=== PATIENT | female | born 1990 | race Hispanic/Latino ===

== ENCOUNTER 2020-12-13 12:18 | Day surgery (SDC) | payer OTHER ==
[2020-12-13] MEDS ORDERED: CELECOXIB 100 MG CAPSULE ONE (13:10)
[2020-12-13] MEDS ORDERED: Ringers Lactate 1,000 ML IV ONE ×2 (13:10→15:47)
[2020-12-13] MEDS ORDERED: ACETAMINOPHEN 500 MG TAB ONE (13:11)
[2020-12-13] MEDS ORDERED: FENTANYL CITR 100 MCG/2 ML ONE (14:19)
[2020-12-13] MEDS ORDERED: MIDAZOLAM HCL 2 MG/2 ML INJ ONE (14:19)
[2020-12-13] MEDS ORDERED: propofoL 200 MG/20 ML VIAL IV ONE (14:19)
[2020-12-13] MEDS ORDERED: dexAMETHasone 10 MG/ML VIAL ONE (14:19)
[2020-12-13] MEDS ORDERED: LIDOCAINE 2% MPF 5 ML VIAL ONE (14:20)
[2020-12-13] MEDS ORDERED: ONDANSETRON 4 MG/2 ML VIAL ONE ×2 (14:20→17:06)
[2020-12-13] MEDS ORDERED: KETOROLAC 30 MG/ML INJ ONE (14:20)
[2020-12-13] MEDS ORDERED: CLINDAMYCIN INJ 300 MG in NA CHLORIDE 0.9% 50 ML IV ONE (14:30)
[2020-12-13] MEDS ORDERED: EPHEDRINE SULF 50 MG/ML VIAL ONE (15:22)
[2020-12-13] MEDS ORDERED: KETAMINE HCL 500 MG/5 ML VIAL ONE (16:07)
[2020-12-13] MEDS ORDERED: Mastisol Adhesive Liq ONE (16:33)
[2020-12-13] MEDS: FENTANYL CITR 100 MCG/2 ML ONE ×2 (16:55→17:00)
[2020-12-13] MEDS ORDERED: MEPERIDINE HCL 25 MG/ML SYR ONE (17:01)
[2020-12-13 17:10] VITALS: TEMP 97
[2020-12-13 17:27] VITALS: O2SAT 100
[2020-12-13] MEDS ORDERED: CODEINE 30MG/APAP 300MG TAB PO ONE (17:45)
[2020-12-13 18:41] VITALS: BP 117/73
--- NOTE | 2020-12-13 23:17 | OP ---
Surgeon: José Reddy MD Preoperative Diagnosis: Implants. Postoperative Diagnosis: Implants. Procedure Performed: Explantation and partial capsulectomy. Anesthesia: General. Procedure In Detail: After satisfactory induction of general anesthesia, the chest was prepped with DuraPrep. Dry sterile drapes were applied in the usual manner. A scalpel was used to make an incision over the previous inframammary fold incisions approximately 5 cm in length. Inferior incision was made and then dissection was proceeded down with electrocautery to the capsule. The capsule was dissected. The implant was lying on the pec major muscle. Posterior capsule was removed. It was over the ribs and muscle. The anterior capsule was dissected up as far as possible. The patient had a very high placed pocket. Portions of pocket were left behind. After right side, then left side was done in identical manner. We then returned to the right side, irrigated with antibiotic solution, brought the 10 CHUCHO out of the axilla, sewn in place with 2-0 silk. suture 3-0 Vicryl was used to closed the wound with 3-0 Vicryl and then 4-0 PDS running subcuticular. Left side was done in identical manner. Implants were sent to Pathology . VY/MAHENDRA Voice ID: [id number] Report ID: [id number]
== END 2020-12-13 18:30 | disposition home or self-care (01) ==
LOC: OR 12:18
PROVIDERS: ATTEND Specialist
PROC: 0HPT0JZ Removal of Synthetic Substitute from Right Breast, Open Approach (ICD-10-PCS; 2020-12-13)
PROC: 0HPU0JZ Removal of Synthetic Substitute from Left Breast, Open Approach (ICD-10-PCS; principal; 2020-12-13 14:00)
DX: T85.44XA Capsular contracture of breast implant, initial encounter (principal)
CPT/HCPCS: 93005; 81025; 88300; 88305; 19371; J2704; J2250; J3010 ×2; J1100; J2175; J7120 ×2; J2405 ×2